=== PATIENT | female | born 1970 | race Caucasian/White ===

== ENCOUNTER 2022-02-03 15:30 | Inpatient (IN) | payer BC ==
[2022-02-03] VITALS (9 sets, daily range): BP systolic 97–116; BP diastolic 53–70; PULSE 106–126; TEMP 98.3–99.9
[~2022-02-03] VITALS: Ht 157.5 cm; Wt 129.4 kg
[2022-02-03 20:52] LABS: INR 1.7 (0.8-3.0); PROTHROMBIN TIME 19.5 SECONDS (9.7-12.8)
[2022-02-04] VITALS (7 sets, daily range): BP systolic 93–138; BP diastolic 49–63; PULSE 76–111; TEMP 97.5–99.7
--- NOTE | 2022-02-04 08:00 | NUR ---
PATIENT IS A&O. NOTED SOFT PRESSURES OF 93/51. 02 @ 2L PER NC WITH SATS IN MID 90'S. ALL OTHER VSS. PATIENT ADMITED WITH HYDRONEPHROSIS AND SEPSIS. BLOOD CULTURES PENDING. IV FLUIDS INFUSING INTO LEFT HAND IV VIA PUMP. PATIENT IS VERY SENSITIVE WITH MOST OF HER BODY AND REPORTS SHE HAS UNDIAGNOSED/CHARTED FIBROMYALGIA. PATIENT HAS C/O TENDERNESS AT IV SINCE ADMISSION. IV SITE CURRENTLY LOOK GOOD, NO REDDNESS, SWELLING OR STREAKING AND FLUSHES EASILY. WILL MONITOR. PATIENT ALSO GETTING IV ABX. NOEL TO DD WITH MOD AMOUNTS OF YELLOW URINE WITH SEDIMENT NOTED. PATIENT ALSO C/O SEVERE DISCOMFORT WITH NOEL STATING SHE CAN "FEEL PAIN INSIDE HER WHERE THE TIP OF THE CATHETER IS". PATIENT GIVEN PRN PERCOCET AND LEVSIN. NURSING ADVANCED NOEL WITHOUT DIFFICULTY. PATIENT SCREAMED, CRIED AND WAS DEEP BREATHING TO THE POINT NURSING WAS WORRIED SHE MAY PASS OUT". PATIENT DOES HAVE UN-TREATED SEVERE ANXIETY. PATIENT WAS SCREAMING AND GETTING WORKED UP EVEN BEFORE NURSING TOUCHED HER NOEL. APPLIED NEW STAT LOCK, MAKING SURE NOEL WAS NOT PULLED TIGHT. PATIENT STILL CONTINUES TO C/O DISCOMFORT EVEN WITH NOEL DRAINING WELL. APPLIED ICE PACK TO ARYA AREA. TO ROUND. HEAD TO TOE ASSESSMENT COMPLETE. AM MEDS GIVEN. NO OTHER NEEDS AT THIS TIME. WILL CONTINUE TO MONITOR.
[2022-02-04 10:31] LABS: CALCIUM 7.8 mg/dL (8.4-10.2); CREATININE, serum 1.17 mg/dL (0.57-1.11); POTASSIUM 3.8 mmol/L (3.5-4.5)
[2022-02-04 10:52] LABS: MEAN CELL VOLUME 80 fl (80.0-100.0); MEAN CORPUSCULAR HGB CONC 31 g/dl (33.0-37.0); MEAN PLATELET VOLUME 9.5 fl (7.4-10.4); PLATELET COUNT 253 K/mm3 (130-400); RED BLOOD COUNT 3.71 M/mm3 (4.10-5.30); REDCELL DISTRIBUTION WIDTH-CV 18.3 % (11.5-14.5)
[2022-02-04 11:44] LABS: BAND 25 % (0-10); LYMPHOCYTE 2 % (20.0-51.0); NEUTROPHILS 70 % (42.0-75.2); PLATELET ESTIMATE NORMAL (NORMAL)
[2022-02-04 11:45] LABS: HEMATOCRIT 29.8 % (37.0-47.0); HEMOGLOBIN 9.2 g/dl (12.5-16.0); MEAN CORPUSCULAR HEMOGLOBIN 25 pg (27-31)
--- NOTE | 2022-02-04 12:30 | NUR ---
PATIENT C/O SEVERE URETHERAL PAIN ASSOCIATED WITH NOEL. PATIENT REPORTS SHE CAN'T MOVE OR IT HURTS. PATIENT ASKING TO GET CATH OUT. NOEL IS DRAINING LARGE AMOUNTS OF CLEAR YELLOW URINE. NOTIFIED UROLOGY, SEE NOEL DC ORDERS.
--- NOTE | 2022-02-04 14:05 | NUR ---
Kirsten: No christian preference Situation: Inoculator stopped by room on rounds Background: PT was in slight distress over IV, manager center contacted nurse Assessment: Pt appreciated the visit Recommendation: manager center will follow up as needed
--- NOTE | 2022-02-04 14:30 | NUR ---
PATIENT CALLED OUT REPORTING SWELLING IN LEFT HAND. LEFT HAND IV APPEARS TO BE INFILTRATED WITH +3 EDEMA. RN DC'D LEFT HAND IV AND COVERED SITE WITH GAUZE & COBAN. ELEVATED LUE AND APPLIED WARM COMPRESS. PATIENT IS A VERY DIFFICULT IV START. RE-STARTED 22 GAUZE IV, ON SECOND ATTEMPT, INTO RIGHT AC. IV FLUIDS AND IV ABX INFUSING. PATIENT TOLERATING WELL. PATIENT HAS VOIDED X1 SINCE NOEL DISCONTINUED. PATIENT DOES REPORT BURING WITH URINATION BUT WAS ALREADY EDUCATED ABOUT POST NOEL REMOVAL. PATIENT NOW RESTING UP IN BED WITH NO COMPLAINTS, RELAXED AND REPORTS SHES TIRED. AT BEDSIDE. LIGHTS TURNED DOWN. CALL LIGHT IN REACH. NO OTHER NEEDS AT THIS TIME.
--- NOTE | 2022-02-04 18:40 | NUR ---
PATIENT CALLED OUT REPORTING IV SITE WAS SWOLLEN AGAIN AND STARTING TO HURT. RIGHT AC IV DC'D IT WAS INFILTRATED, COVERED SITE WITH GAUZE & COBAN. RE-STARTED 22 GAUGE IV INTO RIGHT UPPER ARM/SHOULDER ON FIRST ATTEMPT WITH GOOD BLOOD RETURN AND FLUSHES EASILY. PATIENT THANKED NURSING SHE IS A VERY DIFFICULT IV STICK. IV FLUIDS INFUSING VIA PUMP PER ORDERS. AT BEDSIDE. NO OTHER NEEDS.
--- NOTE | 2022-02-04 23:16 | NUR ---
SHIFT CHANGE FROM LAURY RN. PATIENT IN BED ON ROOM ENTRY. ALERT AND ORIENTED. ASSISTING TO AMBULATE TO BATHROOM. STATES SHE IS VOIDING CLEAR YELLOW URINE WITHOUT ISSUE. IV TO L SHOULDER PATENT AT THIS TIME AND IVF ARE INFUSING WITHOUT ISSUE. PERCOCET GIVEN PRN FOR PAIN. DENIES ADDITIONAL NEEDS AT THIS TIME. CALL LIGHT IS IN REACH.
[2022-02-05] VITALS (7 sets, daily range): BP systolic 104–124; BP diastolic 52–83; PULSE 84–116; TEMP 98.8–102
--- NOTE | 2022-02-05 05:53 | NUR ---
CALL FROM [facility], REPORTS THAT PATIENTS BLOOD CULT[facility] DRA[facility] CAME BACK +ECOLI AND GRAM NEGATIVE RODS. NOTIFIED DEMETRIO DEL CID AND AWAITING NEW ORDERS AT THIS TIME.
[2022-02-05 06:35] LABS: CALCIUM 7.8 mg/dL (8.4-10.2); CREATININE, serum 1.01 mg/dL (0.57-1.11); POTASSIUM 3.3 mmol/L (3.5-4.5)
[2022-02-05 07:01] LABS: MEAN CELL VOLUME 79 fl (80.0-100.0); MEAN CORPUSCULAR HGB CONC 32 g/dl (33.0-37.0); MEAN PLATELET VOLUME 9.8 fl (7.4-10.4); PLATELET COUNT 269 K/mm3 (130-400); RED BLOOD COUNT 3.49 M/mm3 (4.10-5.30); REDCELL DISTRIBUTION WIDTH-CV 18.2 % (11.5-14.5)
[2022-02-05 07:06] LABS: HEMATOCRIT 27.6 % (37.0-47.0); HEMOGLOBIN 8.7 g/dl (12.5-16.0); MEAN CORPUSCULAR HEMOGLOBIN 25 pg (27-31)
--- NOTE | 2022-02-05 08:00 | NUR ---
Patient is Alert and oriented x 3. Lungs CTA. Bowel sounds hypoactive X4 and soft. Patient denies of tenderness. Patient states she hasn't had bowel movement for the past few days. IVF NS running at 70ml/hr. IV site intact on the left upper arm. I assisted patient to the bathroom to void. Patient c/o generalized pain and rated pain level 6/10. Percocet administered per orders. Reviewed lab orders and noted of positive blood culture for E-coli. Will continue monitoring patient.
[2022-02-05 08:29] LABS: BAND 15 % (0-10); LYMPHOCYTE 2 % (20.0-51.0); NEUTROPHILS 82 % (42.0-75.2); PLATELET ESTIMATE NORMAL (NORMAL)
--- NOTE | 2022-02-05 13:13 | NUR ---
back shoe worker met with patient to complete intake and discuss discharge plan. Patient reports that she lives at home with her Kennedy([phone]) in [facility]. Prior to admission, patient has been fully independent with her ADL's and does not utilize any DME to assist with mobility. Patient has no home oxygen needs. PCP is Dr. Halle Vuong and she utilizes [facility] for prescriptions. Patient reports that she does not have a DPOA-HC. Education provided and she denies offer to establish one. Patient is plannign on returning home once medically ready. Discharge plan: Home with spoouse
--- NOTE | 2022-02-05 16:40 | NUR ---
PATIENT TEMP IS 102 ORALLY. PATIENT DENIES FEELING HOT OR FEVERISH. GAVE PRN TYLENOL, SEE MAR.
--- NOTE | 2022-02-05 21:58 | NUR ---
PT A&OX4 RESTING IN BED. PT REPORTS HEADACHE AND ABDOMINAL PN W MOVEMENT A 09/16. ASSESSMENT COMPLETE. NS AT 70ML/HR AND ZOSYN AT 25ML/HR IN HARPER. O2 AT 1L NC. TEMP OF 99.0. NO NEEDS AT THIS TIME. CALL LIGHT WITHIN REACH.
[2022-02-06 03:27] VITALS: BP 112/62; PULSE 101; TEMP 100.5
[2022-02-06 06:29] VITALS: TEMP 99.3
[2022-02-06 06:58] LABS: MEAN CELL VOLUME 80 fl (80.0-100.0); MEAN CORPUSCULAR HGB CONC 31 g/dl (33.0-37.0); MEAN PLATELET VOLUME 9.6 fl (7.4-10.4); PLATELET COUNT 214 K/mm3 (130-400); RED BLOOD COUNT 3.53 M/mm3 (4.10-5.30); REDCELL DISTRIBUTION WIDTH-CV 18.4 % (11.5-14.5)
[2022-02-06 07:04] LABS: HEMATOCRIT 28.2 % (37.0-47.0); HEMOGLOBIN 8.6 g/dl (12.5-16.0); MEAN CORPUSCULAR HEMOGLOBIN 24 pg (27-31)
[2022-02-06 07:14] LABS: CALCIUM 8.1 mg/dL (8.4-10.2); CREATININE, serum 0.96 mg/dL (0.57-1.11); POTASSIUM 3.4 mmol/L (3.5-4.5)
[2022-02-06 07:30] VITALS: BP 107/51; PULSE 90; TEMP 98.9
[2022-02-06 08:23] LABS: BAND 21 % (0-10); EOSINOPHIL 2 % (0-4); LYMPHOCYTE 14 % (20.0-51.0); NEUTROPHILS 57 % (42.0-75.2); PLATELET ESTIMATE NORMAL (NORMAL)
--- NOTE | 2022-02-06 09:17 | NUR ---
Patient Ax0x3. VSS. Lungs CTA, bowel sounds active in all quadrant. INT placed in left shoulder dry and intact. Patient has about quater size of ecchymosis on the right upper arm from previous IV insertion. Patient reports of feeling much better today compare to previous days. Patient report of pain level 2/10. Patient is on 02 1L/NC. O2 removed and will continue to assess patient oxygen level. Received lab order to administer potassium 20mg x3 due to low level of 3.4. Will continue monitoring patient.
[2022-02-06 11:51] VITALS: BP 118/58; PULSE 90; TEMP 100.4
[2022-02-06 15:36] VITALS: BP 104/54; PULSE 84; TEMP 98.3
--- NOTE | 2022-02-06 17:00 | NUR ---
Patient had elevated temp. of 100.4 at 11:44 am . Tylenol 1000mg administered per prn orders. Reassessed patient later, patient's is within normal limit . Patient temp read 98.3. Patient is resting comfortable in bed with spouse at the bed side. Will continue to monitor paitent.
--- NOTE | 2022-02-06 18:33 | NUR ---
Patient c/o chills and pain. Temperature taken with a reading of 99.2. 1000mg of tyenol administered. Call craig placed within reach for an assistance.
[2022-02-06 19:51] VITALS: BP 123/64; PULSE 92; TEMP 99.7
--- NOTE | 2022-02-06 22:02 | NUR ---
PT A&OX4 RESTING IN BED. REPORTS HEADACHE AND ABD PN A /10. VS STABLE AND TELE IN PLACE. MEDS GIVEN AND ASSESSMENT COMPLETE. IV TO HARPER. RED TINGED URINE OUTPUT. NO NEEDS AT THIS TIME. CALL LIGHT WITH REACH.
[2022-02-07 00:01] VITALS: BP 131/77; PULSE 82; TEMP 98.3
[2022-02-07 04:22] VITALS: BP 118/70; PULSE 86; TEMP 99.6
[2022-02-07 06:44] LABS: POTASSIUM 3.5 mmol/L (3.5-4.5)
--- NOTE | 2022-02-07 07:00 | NUR ---
PT RESTING IN BED. PT HAS CALL LIGHT AND PHONE WITHIN REACH. PT INSTRUCTED TO CALL [facility] ALL NEEDS.
[2022-02-07 07:41] LABS: BASO % 0.4 % (0.0-2.0); EOS # 0.1 K/mm3 (0.0-0.7); EOS % 1.5 % (0.0-4.0); GRAN % 74.6 % (42.2-75.2); LYMPH # 1.2 K/mm3 (1.2-3.4); LYMPH % 12.7 % (20.0-51.0); MEAN CELL VOLUME 81 fl (80.0-100.0); MEAN CORPUSCULAR HGB CONC 30 g/dl (33.0-37.0); MEAN PLATELET VOLUME 10.1 fl (7.4-10.4); MONO # 0.9 K/mm3 (0.1-0.6); MONO % 9.8 % (1.7-9.3); PLATELET COUNT 218 K/mm3 (130-400); RED BLOOD COUNT 3.64 M/mm3 (4.10-5.30); REDCELL DISTRIBUTION WIDTH-CV 18.5 % (11.5-14.5)
[2022-02-07 07:46] LABS: CALCIUM 8.4 mg/dL (8.4-10.2); CREATININE, serum 0.77 mg/dL (0.57-1.11)
[2022-02-07 07:50] LABS: HEMATOCRIT 29.5 % (37.0-47.0); HEMOGLOBIN 8.8 g/dl (12.5-16.0); MEAN CORPUSCULAR HEMOGLOBIN 24 pg (27-31)
[2022-02-07 08:01] VITALS: BP 119/57; PULSE 79; TEMP 98.3
[2022-02-07 12:00] VITALS: BP 120/62; PULSE 82; TEMP 98.2
--- NOTE | 2022-02-07 13:02 | NUR ---
1100- PT COMPLAINING OF MIGRANE. DOMINIC DEL CID NOTIFIED AND ORDER RECEIVED. 1245- PT STILL HAVING A MIGRANE. DOMINIC DEL CID NOTIFIED AND ADDITIONAL ORDERS RECEIVED.
[2022-02-07 16:00] VITALS: BP 111/57; PULSE 81; TEMP 98.3
[2022-02-07 19:36] VITALS: BP 114/60; PULSE 88; TEMP 98.6
--- NOTE | 2022-02-07 19:42 | NUR ---
SHIFT REPORT FROM POLLO OROZCO. PATIENT IN BED ON ROOM ENTRY. C/O MILD HEADACHE/MIGRAINE. PRN TYLENOL GIVEN. OFFERED ICEPACK FOR BACK OF NECK BUT PATIENT REFUSED. 100% OF DINNER EATEN. ZOSYN STARTED TO L SHOULDER IV. NO FEVER AT THIS TIME, TEMP 98.6. DENIES ADDITIONAL NEEDS. CALL LIGHT IN REACH.
[2022-02-08 00:18] VITALS: BP 103/55; PULSE 80; TEMP 97.9
[2022-02-08 04:07] VITALS: BP 123/63; PULSE 85; TEMP 98.1
[2022-02-08 07:12] VITALS: BP 128/69; PULSE 79; TEMP 98.3
[2022-02-08 07:17] LABS: BASO # 0.1 K/mm3 (0.0-0.2); BASO % 0.5 % (0.0-2.0); EOS # 0.2 K/mm3 (0.0-0.7); EOS % 2.3 % (0.0-4.0); GRAN # 7.8 K/mm3 (1.4-6.5); GRAN % 73.4 % (42.2-75.2); LYMPH # 1.4 K/mm3 (1.2-3.4); LYMPH % 13.4 % (20.0-51.0); MEAN CELL VOLUME 80 fl (80.0-100.0); MEAN CORPUSCULAR HGB CONC 31 g/dl (33.0-37.0); MEAN PLATELET VOLUME 10.1 fl (7.4-10.4); MONO % 9.6 % (1.7-9.3); PLATELET COUNT 232 K/mm3 (130-400); RED BLOOD COUNT 3.75 M/mm3 (4.10-5.30); REDCELL DISTRIBUTION WIDTH-CV 18.4 % (11.5-14.5)
[2022-02-08 07:21] LABS: HEMATOCRIT 29.9 % (37.0-47.0); HEMOGLOBIN 9.4 g/dl (12.5-16.0); MEAN CORPUSCULAR HEMOGLOBIN 25 pg (27-31)
[2022-02-08 07:32] LABS: CALCIUM 8.5 mg/dL (8.4-10.2); CREATININE, serum 0.77 mg/dL (0.57-1.11); POTASSIUM 3.4 mmol/L (3.5-4.5)
[2022-02-08] MEDS ORDERED: CEFTIN500 MG PO (08:45)
--- NOTE | 2022-02-08 12:14 | NUR ---
DISCHARGED DISCUSSED WITH PT AND SPOUSE, ALL QUESTIONS AND CONCERNS WERE ADDRESSED, PT WHEELED OUT TO PRIVATE VEHICLE HOME, NO FURTHER NEEDS AT THIS TIME
[2022-02-19] MEDS ORDERED: FLOMAX 0.40.4 MG/CAP PO (10:35)
[2022-02-19] MEDS ORDERED: PERCOCET 325 MG1 TA2 PO (10:36)
[2022-02-19] MEDS ORDERED: ADVIL200 MG PO (10:37)
[2022-02-19] MEDS ORDERED: CEFTIN500 MG PO (10:38)
[2022-02-19] MEDS ORDERED: NORCO 325 MG-51 TAB PO (13:41)
== END 2022-02-08 12:11 | disposition home or self-care (01) | DRG 854 ==
LOC: SURG 15:30
PROVIDERS: Physician Assistant; Student in an Organized Health Care Education/Training Program; Urology; ADMIT Internal Medicine
PROC: 0T768DZ Dilation of Right Ureter with Intraluminal Device, Via Natural or Artificial Opening Endoscopic (ICD-10-PCS; principal; 2022-02-03 18:30)
DX: A41.9 Sepsis, unspecified organism (principal); N13.6 Pyonephrosis; Z68.43 Body mass index [BMI] 50.0-59.9, adult; E66.9 Obesity, unspecified; F41.9 Anxiety disorder, unspecified; M79.7 Fibromyalgia; B96.20 Unspecified Escherichia coli [E. coli] as the cause of diseases classified elsewhere; K59.00 Constipation, unspecified; E87.6 Hypokalemia; Z98.51 Tubal ligation status
CPT/HCPCS: A4314; C1769; C2617; J0330; J0690; J1100; J1200; J2405; J2543; J2704; J2765; J3010; J7030; Q9966

== ENCOUNTER 2022-08-29 18:11 | Inpatient (IN) | payer BC ==
[~2022-08-29] VITALS: Ht 157.5 cm; Wt 130.4 kg
[2022-08-29] VITALS (87 sets, daily range): BP systolic 117; BP diastolic 91; PULSE 117; TEMP 97.7; O2SAT 88–98
[~2022-08-29 18:11] MED LIST: ADVIL200 MG PO; CEFTIN500 MG PO; FLOMAX 0.40.4 MG/CAP PO; NORCO 325 MG-51 TAB PO; PERCOCET 325 MG1 TA2 PO
[2022-08-29 18:48] LABS: BASO # 0.1 K/mm3 (0.0-0.2); BASO % 0.7 % (0.0-2.0); EOS # 0.3 K/mm3 (0.0-0.7); EOS % 2.2 % (0.0-4.0); GRAN # 9.5 K/mm3 (1.4-6.5); GRAN % 66.7 % (42.2-75.2); HEMATOCRIT 39.4 % (37.0-47.0); HEMOGLOBIN 12.3 g/dl (12.5-16.0); LYMPH # 3.3 K/mm3 (1.2-3.4); LYMPH % 22.9 % (20.0-51.0); MEAN CELL VOLUME 77 fl (80.0-100.0); MEAN CORPUSCULAR HEMOGLOBIN 24 pg (27-31); MEAN CORPUSCULAR HGB CONC 31 g/dl (33.0-37.0); MONO % 7.1 % (1.7-9.3); PLATELET COUNT 353 K/mm3 (130-400); RED BLOOD COUNT 5.12 M/mm3 (4.10-5.30); REDCELL DISTRIBUTION WIDTH-CV 18.7 % (11.5-14.5)
[2022-08-29 19:06] LABS: ALBUMIN 3.7 gm/dL (3.5-5.0); BILIRUBIN,TOTAL 0.4 mg/dL (0.2-1.2); CALCIUM 9.2 mg/dL (8.4-10.2); CREATININE, serum 1.08 mg/dL (0.57-1.11); POTASSIUM 3.4 mmol/L (3.5-4.5); TOTAL PROTEIN 8.2 gm/dL (6.2-8.1)
[2022-08-29 19:13] LABS: TROPONIN-I 0.434 ng/mL (0.00-0.033)
[2022-08-29] MEDS ORDERED: MULTIVITAMIN200 MCG PO (21:13)
[2022-08-29] MEDS ORDERED: CALCIUM CITRAT200 M2 PO (21:14)
[2022-08-29] MEDS ORDERED: MAGNESIUM CITR100 MG PO (21:14)
[2022-08-29 21:21] LABS: PARTIAL THROMBOPLASTIN TIME 29.6 SECONDS (26.0-37.0)
[2022-08-29 21:28] LABS: INR 1.1 (0.8-3.0); PROTHROMBIN TIME 12.8 SECONDS (9.7-12.8)
[2022-08-29] MEDS ORDERED: UROCIT-K 5540 MG/TAB PO (22:39)
[2022-08-29 23:06] LABS: COLLECTION METHOD CLEAN CATCH; URINE APPEARANCE Clear (CLEAR/HAZY); URINE BLOOD TRACE-INTACT (NEGATIVE); URINE COLOR Yellow (YELLOW); URINE GLUCOSE Negative (NEGATIVE); URINE KETONE Negative (NEGATIVE); URINE NITRATE Positive (NEGATIVE); URINE PROTEIN(semi-quant) 2+ (NEGATIVE); URINE UROBILINOGEN 0.2 E.U/dL (0.2-1.0)
[2022-08-29 23:12] LABS: MUCOUS Present (NOT PRESENT); URINE BACTERIA Moderate /hpf (NONE SEEN); URINE RBC 20-50 /hpf (0-2)
[2022-08-30] VITALS (632 sets, daily range): BP systolic 124–148; BP diastolic 70–89; PULSE 86–109; TEMP 97.6–98.2; O2SAT 81–99
--- NOTE | 2022-08-30 00:07 | NUR ---
2136 RECEIVED REPORT FROM ED NURSE CAMILA. 2156 PT ARRIVED ON THE UNIT. PT WENT TO THE COMMODE BEFORE GETTING INTO THE BED. PT WAS ABLE TO PIVOT INTO BED BUT HAD SOA AND INCREASE HR AND RR WHEN MOVING AROUND. DID THE PHYSICAL AND INTAKE ASSESSMENT AND WENT OVER PT'S HOME MEDS WITH THE PT. PT IS NOW RESTING IN BED WITH CALL LIGHT WITHIN REACH. VITAL SIGNS ARE STABLE AT THIS TIME.
[2022-08-30 04:27] LABS: BASO # 0.1 K/mm3 (0.0-0.2); BASO % 0.8 % (0.0-2.0); EOS # 0.3 K/mm3 (0.0-0.7); EOS % 2.5 % (0.0-4.0); GRAN # 6.3 K/mm3 (1.4-6.5); GRAN % 58.4 % (42.2-75.2); LYMPH # 3.4 K/mm3 (1.2-3.4); LYMPH % 31.3 % (20.0-51.0); MEAN CELL VOLUME 77 fl (80.0-100.0); MEAN CORPUSCULAR HGB CONC 31 g/dl (33.0-37.0); MEAN PLATELET VOLUME 9.1 fl (7.4-10.4); MONO # 0.7 K/mm3 (0.1-0.6); MONO % 6.7 % (1.7-9.3); PLATELET COUNT 294 K/mm3 (130-400); RED BLOOD COUNT 4.22 M/mm3 (4.10-5.30); REDCELL DISTRIBUTION WIDTH-CV 18.6 % (11.5-14.5)
[2022-08-30 04:28] LABS: HEMATOCRIT 32.5 % (37.0-47.0); MEAN CORPUSCULAR HEMOGLOBIN 24 pg (27-31)
[2022-08-30 04:45] LABS: CALCIUM 8.3 mg/dL (8.4-10.2); CREATININE, serum 0.8 mg/dL (0.57-1.11); POTASSIUM 3.8 mmol/L (3.5-4.5)
--- NOTE | 2022-08-30 09:44 | NUR ---
Initial visit; Patient thanked Philanthropy Officer for looking in on her and offering God's blessings.
--- NOTE | 2022-08-30 10:00 | NUR ---
SW met with patient to complete intake. Patient reports that she lives at home with her Kennedy ([phone]) in [place], [place]. Patient reports to being fully independent with her ADL's and IADL's. She denies any DME use at home or home oxygen needs. PCP is and she utilizes both [facility] and [facility] in [place] for prescriptions. Patient denies having a DPOA-HC established and does not wish to create one while here.
--- NOTE | 2022-08-30 14:39 | NUR ---
1437 PCT HERE TO TAKE PT TO NEW ROOM. PT TAKEN BY . 1440 REPORT TO [facility] ON MEDICAL. PT TO ROOM 353.
--- NOTE | 2022-08-30 15:50 | NUR ---
PT ARRIVED TO UNIT AROUND 1450 FROM ICU. ORIENTED TO ROOM AND ASSESSED. IVF RESTARTED PER EMAR.
[2022-08-31 03:59] VITALS: BP 121/77; PULSE 104; TEMP 98
[2022-08-31 07:31] VITALS: BP 140/93; PULSE 113; TEMP 97.5
--- NOTE | 2022-08-31 08:00 | NUR ---
Patient back to bed from the bathroom, reports SOA with exertion. A&Ox4. VSS. IV CDI, fluids infusing. Denies pain and discomfort. States that she "feels better". Call light within reach
[2022-08-31] MEDS ORDERED: ELIQUIS 5MG PO (10:25)
[2022-08-31] MEDS ORDERED: CEFTIN500 MG PO (10:27)
--- NOTE | 2022-08-31 11:50 | NUR ---
Discharge paperwork reviewed with the patient and at the bedside. PAtient verbalized an understanding to follow doctors orders. IV removed, tip intact. Patient transfered by wheelchair to awaiting vehicle. no further needs expressed.
--- NOTE | 2022-08-31 12:17 | NUR ---
Consulting Psychologist rounds: Consulting Psychologist visit attempted. Patient had visitor. Visitor said, "Thank you for stopping by."
== END 2022-08-31 12:03 | disposition home or self-care (01) | DRG 175 ==
LOC: COL.ER 18:11 → ICU 20:48 → MEDICAL 08-30 15:13
PROVIDERS: Emergency Medicine; Nurse Practitioner Family; ADMIT Student in an Organized Health Care Education/Training Program
DX: I26.99 Other pulmonary embolism without acute cor pulmonale (principal); I21.A1 Myocardial infarction type 2; E87.20 Acidosis, unspecified; N39.0 Urinary tract infection, site not specified; Z68.43 Body mass index [BMI] 50.0-59.9, adult; I10 Essential (primary) hypertension; F41.9 Anxiety disorder, unspecified; E66.01 Morbid (severe) obesity due to excess calories; D50.9 Iron deficiency anemia, unspecified; E87.6 Hypokalemia; I16.0 Hypertensive urgency; Z96.0 Presence of urogenital implants; Z20.822 Contact with and (suspected) exposure to COVID-19; Z88.5 Allergy status to narcotic agent; Z87.442 Personal history of urinary calculi; Z90.89 Acquired absence of other organs; Z98.51 Tubal ligation status; Z87.440 Personal history of urinary (tract) infections; Z79.01 Long term (current) use of anticoagulants; Z23 Encounter for immunization
CPT/HCPCS: J0696; J1644; J7030; Q9967

== ENCOUNTER 2022-10-16 11:48 | Outpatient (CLI) | payer BC ==
[~2022-10-16] VITALS: Ht 157.5 cm; Wt 132.4 kg
[~2022-10-16 11:48] MED LIST changes: +CALCIUM CITRAT200 M2 PO; +ELIQUIS 5MG PO; +MAGNESIUM CITR100 MG PO; +MULTIVITAMIN200 MCG PO; +UROCIT-K 5540 MG/TAB PO
[2022-10-16 12:31] VITALS: BP 142/97; PULSE 104; TEMP 98.3
[2022-10-16 12:36] LABS: BASO # 0.1 K/mm3 (0.0-0.2); EOS # 0.2 K/mm3 (0.0-0.7); EOS % 1.8 % (0.0-4.0); GRAN # 6.1 K/mm3 (1.4-6.5); GRAN % 65.5 % (42.2-75.2); LYMPH # 2.3 K/mm3 (1.2-3.4); LYMPH % 24.9 % (20.0-51.0); MEAN CELL VOLUME 76 fl (80.0-100.0); MEAN CORPUSCULAR HGB CONC 31 g/dl (33.0-37.0); MEAN PLATELET VOLUME 8.9 fl (7.4-10.4); MONO # 0.6 K/mm3 (0.1-0.6); MONO % 6.6 % (1.7-9.3); PLATELET COUNT 413 K/mm3 (130-400); RED BLOOD COUNT 4.26 M/mm3 (4.10-5.30)
[2022-10-16 12:37] LABS: HEMATOCRIT 32.5 % (37.0-47.0); HEMOGLOBIN 9.9 g/dl (12.5-16.0); MEAN CORPUSCULAR HEMOGLOBIN 23 pg (27-31)
[2022-10-16 12:41] LABS: INR 1.4 (0.8-3.0); PROTHROMBIN TIME 15.6 SECONDS (9.7-12.8)
[2022-10-16 12:54] LABS: CALCIUM 8.9 mg/dL (8.4-10.2); CREATININE, serum 0.81 mg/dL (0.57-1.11); POTASSIUM 3.7 mmol/L (3.5-4.5)
[2022-10-16 14:00] VITALS: BP 132/79; PULSE 98
[2022-10-16 14:15] VITALS: BP 112/69; PULSE 100
[2022-10-16 14:30] VITALS: BP 136/87; PULSE 93
[2022-10-16 14:45] VITALS: BP 141/87; PULSE 94
--- NOTE | 2022-10-16 15:25 | NUR ---
pt discharged at approx 1525. she was assisted to the main lobby via wheelchair and was accompanied by who was her ride home. she did not verbalize or report any throat swelling, difficulty breathing, or hemoptysis prior to discharge. she verbalized understanding of discharge education and was free from concerns and complaints at time of discharge. pt tolerated po fluids during recovery period, vs remained wnl, IV was DCd.
== END 2022-10-16 15:20 | disposition home or self-care (01) ==
LOC: COL.RAD 11:48
PROVIDERS: Internal Medicine Cardiovascular Disease
DX: I21.9 Acute myocardial infarction, unspecified (principal)
CPT/HCPCS: J2704